=== PATIENT | female | born 1990 | race Two or more races ===

== ENCOUNTER 2022-03-11 08:35 | Inpatient (IN) ==
[2022-03-11] MEDS ORDERED: OXYTOCIN 30 UNITS/500 ML BAG IV PRN ×3 (08:55→22:44)
[2022-03-11 09:24] LABS: Hematocrit (blood only) 41.4 % (37-47); Hemoglobin 14.3 g/dL (12.0-16.0); Mean Corpuscular Hemoglobin 31.4 pg (25-34); Mean Corpuscular Hgb Conc 34.5 g/dL (32-36); Mean Platelet Volume 10.3 fL (7.4-10.4); Platelet Count 265 K/uL (130-400); RDW Coefficient of Variation 13.1 % (11.5-14.5); RDW Standard Deviation 43.1 fL (36.4-46.3); Red Blood Count 4.55 M/uL (4.2-5.4); White Blood Count 13.44 K/uL (4.8-10.8)
[2022-03-11] MEDS: LACTATED RINGER'S 1,000 ML IV PRN ×2 (09:37→19:18)
--- NOTE | 2022-03-11 10:23 | History & Physical Report ---
Date of Service March 11, 2022 Assessment & Plan (1) Encounter for supervision of normal intrauterine in primigravida, antepartum: Plan: pro, admit, note pos pcr at [facility] february 27, >10 days, therefore neg and will not do covid precautions. Admission and Anticipated Discharge Date Admission Date: March 11, 2022 History of Present Illness Primary Care Provider: NO PCP Allergies Allergy/AdvReac Type Severity Reaction Status Date / Time No Known Allergies Allergy Verified 03/06/22 16:46 Home Medications Medication Instructions Recorded Confirmed Type prenat.vits,jay,cdx-mmal-svekc 1 tab PO DAILY 08/03/21 03/11/22 History Patient History Medical History Migraines No significant past medical history Surgical History No pertinent past surgical history Family History Father Hypertension Diabetes Myocardial infarction Grandfather (Paternal) Pancreatic cancer Denies family history of Ovarian cancer Prostate cancer Breast cancer Colorectal cancer Social History Smoking Status: Never smoker Second Hand Exposure: No; Hx Alcohol Use: No Hx Substance Use: No Preferred Language: Trinidadian Communication Ability: Effective Visual Impairment: No Limitations Hearing Ability: Normal 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 Physical Required: No Beliefs That Will Affect Care: None marital status: marital status details: Conrad Paul (33) [phone] Current Living Situation: Spouse Current Living Situation Comment: lives with , no pets current occupational status: employed 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
--- NOTE | 2022-03-11 11:31 | Labor Progress Brief Note ---
Date of Service March 11, 2022 Contractions are present however they are fairly mild and spaced I recommended Pitocin for spontaneous rupture of membranes. Estimated weight 7 pounds Assessment & Plan Admission and Anticipated Discharge Date Admission Date: March 11, 2022 Results & Data ([facility]) Vital Signs (Past 12 Hours) Vital Signs Temp Pulse Resp BP 03/11/22 09:40 98.2 F 18 03/11/22 08:45 129 H 132/76 Coding Level of Care Code None
[2022-03-11] MEDS ORDERED: ePHEDrine sulfate 50 MG/ML AMP ONE (15:33)
[2022-03-11] MEDS ORDERED: fentaNYL 2MCG/ML ROPIVACAINE 1.25MG/ML 100 ML BAG EPI ONE (15:34)
[2022-03-11] MEDS ORDERED: BUPIVACAINE 0.25% 30 ML VIAL ONE (15:34)
[2022-03-11] MEDS ORDERED: SODIUM CHLORIDE 0.9% INJ 10 ML VIAL ONE (15:34)
[2022-03-11] MEDS ORDERED: fentaNYL citrate 100 MCG/2 ML VIAL ONE (15:34)
--- NOTE | 2022-03-11 15:43 | Labor Progress Brief Note ---
Date of Service March 11, 2022 Patient has declined intervention up to this point with suggestion of Pitocin earlier from myself Her contractions have increased and she has now dilated to 5 to 6 cm per nursing. The patient now wishes epidural this will be ordered. Will reassess cervix after patient is comfortable with epidural Assessment & Plan Admission and Anticipated Discharge Date Admission Date: March 11, 2022 Results & Data ([facility]) Vital Signs (Past 12 Hours) Vital Signs Temp Pulse Resp BP 03/11/22 15:10 97.9 F 03/11/22 15:04 20 03/11/22 13:16 82 126/74 03/11/22 13:15 98.2 F 18 03/11/22 09:40 98.2 F 18 03/11/22 08:45 129 H 132/76 Coding Level of Care Code None
[2022-03-11] MEDS ORDERED: NALOXONE HCL 1 MG in SODIUM CHLORIDE 0.9% 1000ML 1,000 ML IV PRN (15:45)
[2022-03-11] MEDS ORDERED: diphenhydrAMINE 50 MG/ML VIAL IV PRN (15:45)
[2022-03-11] MEDS ORDERED: ePHEDrine sulfate 50 MG/ML AMP IV PRN (15:45)
[2022-03-11] MEDS ORDERED: NALBUPHINE HCL INJ 10 MG/ML AMP IV PRN (15:45)
[2022-03-11] MEDS ORDERED: fentaNYL 2MCG/ML ROPIVACAINE 1.25MG/ML 100 ML BAG EPI PRN (15:45)
[2022-03-11] MEDS ORDERED: NALOXONE HCL 0.4 MG/1 ML VIAL/CARP IV PRN (15:45)
[2022-03-11] MEDS ORDERED: ONDANSETRON INJ 2 MG/ML 2 ML VIAL IV PRN (15:45)
--- NOTE | 2022-03-11 15:45 | Anesthesiology Consultation ---
Date of Service March 11, 2022 Assessment & Plan ASA ASA2 Proposed Anesthesia Anesthesia Type: Labor Epidural Risk / Benefits Reviewed With: PT / POA / Parent / Guardian, Accepts Plan and Informed Consent Obtained History Height/Weight Height: 5 ft Weight: 66.224 kg Allergies Allergy/AdvReac Type Severity Reaction Status Date / Time No Known Allergies Allergy Verified 03/06/22 16:46 Medications Home Medications Medication Instructions Recorded Confirmed Last Taken prenat.vits,jay,yoe-sogk-xklwx 1 tab PO DAILY 08/03/21 03/11/22 1 Day Ago ~03/10/22 1 Active Medications Generic Name Dose Route Start Last Admin Trade Name Freq PRN Reason Stop Dose Admin Lactated Ringer's 1,000 mls @ 125 mls/hr 03/11/22 08:55 03/11/22 11:30 Lr IV 03/13/22 08:54 0 mls/hr .Q8H PRN Infusion L&D Protocol Protocol Past Medical History Medical History Migraines No significant past medical history Exercise / Class Metabolic Activity II 4-5 Yardwork/Stairs/Walk up hill Past Family History Family History Father Hypertension Diabetes Myocardial infarction Grandfather (Paternal) Pancreatic cancer Denies family history of Ovarian cancer Prostate cancer Breast cancer Colorectal cancer Past Surgical History Surgical History No pertinent past surgical history Past Anesthesia History No Hx of Anesthesia Complications and No Family Hx of Anesthesia Complications History of PONV No Hx of PONV and No Hx of Motion Sickness Social History Smoking Status: Never smoker Hx Alcohol Use: No Hx Substance Use: No Review of Systems denies fever/cough/ colds/ chest pain/ SOB/ SHELBY denies SHELBY Physical Exam Vital Signs Last Vital Signs Temp 36.6 C 03/11/22 15:10 Pulse 98 H 03/11/22 16:26 Resp 20 03/11/22 15:04 BP 109/57 L 03/11/22 16:26 Pulse Ox 100 03/11/22 16:25 ENMT Mouth: no TMJ abnormality and no dentition abnormality Thyromental Distance: > or= 3.5 Finger Breadths Mallampati Class: II Neck neck extension not limited Respiratory normal respiratory effort; no respiratory distress Auscultation: lungs clear to auscultation bilaterally Cardiovascular Rate/Rhythm: regular rate and regular rhythm Neurologic moves all extremities Psychiatric Orientation: alert and oriented x 3 Testing Laboratory Results 03/11/22 09:03
--- NOTE | 2022-03-11 16:25 | Labor Progress Brief Note ---
Date of Service March 11, 2022 Now has epidural cervix 5 cm 100% effacement I have strongly recommended Pitocin at this stage as she needs a slightly better contraction pattern has not changed since before the epidural Assessment & Plan Admission and Anticipated Discharge Date Admission Date: March 11, 2022 Results & Data ([facility]) Vital Signs (Past 12 Hours) Vital Signs Temp Pulse Resp BP Pulse Ox 03/11/22 16:23 94 H 116/60 03/11/22 16:20 108 H 121/56 L 100 03/11/22 16:19 115 H 118/58 L 03/11/22 16:17 103 H 122/59 L 03/11/22 16:15 92 H 127/61 100 03/11/22 16:11 105 H 120/59 L 03/11/22 16:10 101 H 88 L 03/11/22 16:05 88 130/86 100 03/11/22 16:02 113 H 125/83 03/11/22 16:00 91 H 100 03/11/22 15:10 97.9 F 03/11/22 15:04 20 03/11/22 13:16 82 126/74 03/11/22 13:15 98.2 F 18 03/11/22 09:40 98.2 F 18 03/11/22 08:45 129 H 132/76 Coding Level of Care Code None
--- NOTE | 2022-03-11 17:31 | Labor Progress Brief Note ---
Date of Service March 11, 2022 Management update Nursing is informed me again that despite the patient agreeing to Pitocin when I am in the room, as soon as I leave the room they have decided not to have Pitocin. I discussed in depth the nature of Pitocin what it is how it used in the low-dose fashion and how it can facilitate a healthy delivery specifically because her contractions have spaced out at this stage after the epidural. We have had several conversations about Pitocin and she states they have talked to a physician friend of theirs by phone as well. I clearly and emphatically stated that the patient did not have to do anything that we recommended and specifically if she did not want Pitocin that that was her choice but that this was outside of the recommendation of medical therapy at this time. I specifically stated that medically I recommended Pitocin for the patient to augment her labor because of rupture of membranes and contractions that it spaced out additionally her cervix had not changed between several checks more than 2 hours apart Once again I have reassured the patient we are happy to take care of her and we will respect her wishes of course. I discussed however that she is outside of the recommendation of her treatment by me at this stage and that there can be consequences to that. Specifically prolonged labor infection due to prolonged rupture of membranes these were all discussed with her. Support and encouragement provided to the patient Recommendation for Pitocin again given Assessment & Plan Admission and Anticipated Discharge Date Admission Date: March 11, 2022 Results & Data ([facility]) Vital Signs (Past 12 Hours) Vital Signs Temp Pulse Resp BP Pulse Ox 03/11/22 17:26 93 H 94/55 L 03/11/22 17:25 94 H 97 03/11/22 17:23 85 90/50 L 03/11/22 17:20 85 84/54 L 99 03/11/22 17:17 85 87/51 L 03/11/22 17:15 98 H 100 03/11/22 17:14 96 H 91/53 L 03/11/22 17:11 86 93/51 L 03/11/22 17:10 92 H 100 03/11/22 17:08 90 94/52 L 03/11/22 17:05 93 H 95/52 L 100 03/11/22 17:03 104 H 88/51 L 03/11/22 17:02 92 H 91/52 L 03/11/22 17:00 92 H 100 03/11/22 16:59 98.2 F 87 16 89/51 L 03/11/22 16:56 97 H 90/51 L 03/11/22 16:55 107 H 98 03/11/22 16:53 92 H 90/54 L 03/11/22 16:50 105 H 86/51 L 99 03/11/22 16:47 111 H 92/49 L 03/11/22 16:45 96 H 82/50 L 99 03/11/22 16:44 108 H 78/40 L 03/11/22 16:42 100 H 93/50 L 03/11/22 16:41 105 H 92 03/11/22 16:40 99 H 100 03/11/22 16:35 104 H 102/59 L 100 03/11/22 16:32 95 H 109/55 L 03/11/22 16:30 101 H 100 03/11/22 16:29 106 H 108/55 L 03/11/22 16:26 98 H 109/57 L 03/11/22 16:25 105 H 100 03/11/22 16:23 94 H 116/60 03/11/22 16:20 108 H 121/56 L 100 03/11/22 16:19 115 H 118/58 L 03/11/22 16:17 103 H 122/59 L 03/11/22 16:15 92 H 127/61 100 03/11/22 16:11 105 H 120/59 L 03/11/22 16:10 101 H 88 L 03/11/22 16:05 88 130/86 100 03/11/22 16:02 113 H 125/83 03/11/22 16:00 91 H 100 03/11/22 15:10 97.9 F 03/11/22 15:04 20 03/11/22 13:16 82 126/74 03/11/22 13:15 98.2 F 18 03/11/22 09:40 98.2 F 18 03/11/22 08:45 129 H 132/76 Coding Level of Care Code None
--- NOTE | 2022-03-11 22:07 | Delivery Summary ---
Vaginal Delivery Summary Date of Service March 11, 2022 Vaginal Delivery Summary Spontaneous vaginal delivery the patient delivered baby in occiput anterior position after head was born fluid was clear mouth and then nares suctioned there was no nuchal cord gentle traction easy delivery with no excessive force live vigorous female infant cord gases obtained cord blood obtained placenta removed with traction second-degree tear repaired with 3-0 Vicryl IV Pitocin started uterine tone improved sponge and instrument counts correct estimated blood loss 200 mL
[2022-03-11 22:24] LABS: Base Excess Cord Venous Blood -3.5 mEq/L (-7.7-1.9); Cord Venous Blood HCO3 22 mmol/L (18.4-26.8); Cord Venous Blood PCO2 40 mmHg (30.4-57.2); Cord Venous Blood PO2 28 mmHg (14.1-43.3); Cord Venous Blood pH 7.35 (7.20-7.44); O2 Saturation Cord Venous Bld 64.1 % (<68)
[2022-03-11 22:26] LABS: Base Excess Cord Arterial Bld -4.1 mEq/L (-9-1.8); CO2 Cord Arterial Blood 48 mmHg (39.1-73.5); HCO3 Cord Arterial Blood 23 mmol/L (19.7-28.5); Oxygen Sat Cord Arterial Blood < 60.0 % (<60); PO2 Cord Arterial Blood 25 mmHg (4.1-31.7); pH Cord Arterial Blood 7.29 (7.1-7.38)
[2022-03-11] MEDS ORDERED: DIPHTHERIA/TETANUS/PERTUSSIS 0.5 ML SYR/VIAL IM ONE (22:44)
[2022-03-11] MEDS ORDERED: BENZOCAINE 20% AER SPR 82.5 GM CAN EXT PRN (22:44)
[2022-03-11] MEDS ORDERED: oxyCODONE/ACETAMINOPHEN 5mg/325mg TAB PO PRN (22:44)
[2022-03-11] MEDS ORDERED: ACETAMINOPHEN 325 MG TAB PO PRN (22:44)
[2022-03-11] MEDS ORDERED: HYDROCORTISONE ACETATE 25 MG SUPP PR PRN (22:44)
[2022-03-11] MEDS: IBUPROFEN 600 MG TAB PO PRN (23:40)
--- NOTE | 2022-03-12 06:37 | Hospitalist Progress Note ---
Date of Service March 12, 2022 Assessment & Plan (1) Vaginal delivery: Plan: 32 yo now PPD1 from at 37w4d -Continue routine care today -Vitals reviewed- HDS, afebrile -Blood type O+, GBS-, Rubella immune -Encourage ambulation, regular diet -Pain control with ibuprofen, acetaminophen PRN -Encourage -F/u in 6 weeks with OB after discharge Admission and Anticipated Discharge Date Admission Date: March 11, 2022 Subjective Pt doing well, no acute complaints. Review of Systems Review of Systems: Denies fevers/chills. Denies dyspnea, cough. Denies chest pain. Denies breast pain or discharge. Denies dysuria. Denies headache. Denies back pain. Physical Exam Physical Exam: General: Alert, oriented, no acute distress Cardiac: Regular rate and rhythm, normal S1, S2. No murmurs appreciated. Respiratory: Clear to auscultation b/l with good air flow entry, symmetric chest rise and fall. No wheezes or crackles. No increased work of breathing or accessory muscle use Abdomen: Soft, nontender, nondistended. Fundus firm and palpable at 2 cm below umbilicus. No guarding or rebound. Skin: No rashes or lesions Extremities: Warm, dry, well-perfused with capillary refill <2s b/l. No lower extremity edema, erythema, swelling or calf tenderness Results & Data Results & Data ([facility]) Vital Signs (Past 12 Hours) Vital Signs Temp Pulse Pulse Resp BP BP Pulse Ox 03/12/22 05:15 36.6 C 87 18 105/68 97 03/12/22 01:00 36.8 C 93 H 18 110/71 98 03/12/22 00:25 18 03/12/22 00:05 96 H 109/67 03/12/22 00:00 111 H 99 03/11/22 23:55 107 H 99 03/11/22 23:50 109 H 98 03/11/22 23:45 108 H 98 03/11/22 23:40 108 H 96 03/11/22 23:35 105 H 98 03/11/22 23:34 96 H 96/56 L 03/11/22 23:33 18 03/11/22 23:30 101 H 97 03/11/22 23:25 100 H 97 03/11/22 23:20 111 H 97 03/11/22 23:19 110 H 98/64 L 03/11/22 23:15 105 H 97 03/11/22 23:10 108 H 96 03/11/22 23:05 109 H 97 03/11/22 23:04 111 H 100/56 L 03/11/22 23:00 108 H 96 03/11/22 22:55 112 H 96 03/11/22 22:50 111 H 97 03/11/22 22:49 108 H 106/55 L 03/11/22 22:48 18 03/11/22 22:45 109 H 96 03/11/22 22:40 111 H 96 03/11/22 22:35 114 H 97 03/11/22 22:34 110 H 111/58 L 03/11/22 22:33 18 03/11/22 22:30 113 H 96 03/11/22 22:25 114 H 97 03/11/22 22:20 116 H 96 03/11/22 22:19 114 H 115/55 L 03/11/22 22:18 18 03/11/22 22:15 115 H 97 03/11/22 22:10 124 H 97 03/11/22 22:09 118 H 116/58 L 03/11/22 22:05 119 H 97 03/11/22 22:03 125 H 18 104/64 03/11/22 22:00 124 H 98 03/11/22 21:55 121 H 108/66 98 03/11/22 21:50 134 H 98 03/11/22 21:49 139 H 132/75 03/11/22 21:45 151 H 100 03/11/22 21:40 158 H 100 03/11/22 21:35 127 H 99 03/11/22 21:34 123 H 137/67 03/11/22 21:30 131 H 96 03/11/22 21:25 137 H 99 03/11/22 21:20 143 H 98 03/11/22 21:19 111 H 120/58 L 03/11/22 21:15 118 H 99 03/11/22 21:10 37.5 C 130 H 18 98 03/11/22 21:05 122 H 123/62 99 03/11/22 21:00 116 H 100 03/11/22 20:55 130 H 100 03/11/22 20:54 122 H 87 L 03/11/22 20:51 133 H 141/62 H 03/11/22 20:50 147 H 95 03/11/22 20:45 120 H 100 03/11/22 20:40 111 H 99 03/11/22 20:35 130 H 100 03/11/22 20:34 126 H 131/59 L 03/11/22 20:30 119 H 100 03/11/22 20:29 110 H 89 L 03/11/22 20:26 100 H 136/61 03/11/22 20:25 93 H 100 03/11/22 20:20 133 H 100 03/11/22 20:15 122 H 99 03/11/22 20:10 113 H 139/57 L 100 03/11/22 20:05 106 H 100 03/11/22 20:00 105 H 100 03/11/22 19:55 93 H 100 03/11/22 19:50 92 H 100 03/11/22 19:45 88 100 03/11/22 19:40 78 97 03/11/22 19:35 87 100 03/11/22 19:34 77 97/55 L 03/11/22 19:30 94 H 96 03/11/22 19:25 81 99 03/11/22 19:21 79 95/51 L 03/11/22 19:20 87 99 03/11/22 19:15 79 99 03/11/22 19:10 80 99 03/11/22 19:05 86 96/55 L 98 03/11/22 19:00 89 99 03/11/22 18:55 87 100 03/11/22 18:50 83 100 03/11/22 18:49 97 H 90/55 L 03/11/22 18:45 99 H 100 03/11/22 18:40 90 100 03/11/22 18:35 97 H 100 03/11/22 18:34 77 97/53 L Resident Activity Tracking Resident Involvement: Resident Care Provided Care Provided: OB Delivery
--- NOTE | 2022-03-12 06:40 | Obstetrical Progress Note ---
Date of Service <Brigitte Gilliland MD - Last Filed: 03/12/22 07:03> March 12, 2022 Assessment & Plan <Brigitte Gilliland MD - Last Filed: 03/12/22 07:03> (1) Vaginal delivery: 32 yo now PPD1 from at 37w4d -Continue routine care today -Vitals reviewed- HDS, afebrile -Blood type O+, GBS-, Rubella immune -Encourage ambulation, regular diet -Pain control with ibuprofen, acetaminophen PRN -Encourage -F/u in 6 weeks with OB after discharge <Holly Daniel MD, FACOG - Last Filed: 03/12/22 07:05> (1) Vaginal delivery: Subjective <Brigitte Gilliland MD - Last Filed: 03/12/22 07:03> Ambulation: ambulating normally Voiding: no voiding problems Passing Gas:: Yes Diet Tolerance:: regular diet Lochia:: Small Feeding Type:: breast feeding Current Pain Level(1-10): 2 Pt doing well, has some minor L hip soreness. Pain relieved with medication. No other complaints. Review of Systems Denies fevers/chills. Denies dyspnea, cough. Denies chest pain. Denies breast pain or discharge. Denies dysuria. Denies headache. Denies back pain. Physical Exam <Brigitte Gilliland MD - Last Filed: 03/12/22 07:03> General: Alert, oriented, no acute distress Cardiac: Regular rate and rhythm, normal S1, S2. No murmurs appreciated. Respiratory: Clear to auscultation b/l with good air flow entry, symmetric chest rise and fall. No wheezes or crackles. No increased work of breathing or accessory muscle use Abdomen: Soft, nontender, nondistended. Fundus firm and palpable at 2 cm below umbilicus. No guarding or rebound. Skin: No rashes or lesions Extremities: Warm, dry, well-perfused with capillary refill <2s b/l. No lower extremity edema, erythema, swelling or calf tenderness Results & Data ([facility]) <Brigitte Gilliland MD - Last Filed: 03/12/22 07:03> Vital Signs (Past 12 Hours) Vital Signs Temp Pulse Pulse Resp BP BP Pulse Ox 03/12/22 05:15 36.6 C 87 18 105/68 97 03/12/22 01:00 36.8 C 93 H 18 110/71 98 03/12/22 00:25 18 03/12/22 00:05 96 H 109/67 03/12/22 00:00 111 H 99 03/11/22 23:55 107 H 99 03/11/22 23:50 109 H 98 03/11/22 23:45 108 H 98 03/11/22 23:40 108 H 96 03/11/22 23:35 105 H 98 03/11/22 23:34 96 H 96/56 L 03/11/22 23:33 18 03/11/22 23:30 101 H 97 03/11/22 23:25 100 H 97 03/11/22 23:20 111 H 97 03/11/22 23:19 110 H 98/64 L 03/11/22 23:15 105 H 97 03/11/22 23:10 108 H 96 03/11/22 23:05 109 H 97 03/11/22 23:04 111 H 100/56 L 03/11/22 23:00 108 H 96 03/11/22 22:55 112 H 96 03/11/22 22:50 111 H 97 03/11/22 22:49 108 H 106/55 L 03/11/22 22:48 18 03/11/22 22:45 109 H 96 03/11/22 22:40 111 H 96 03/11/22 22:35 114 H 97 03/11/22 22:34 110 H 111/58 L 03/11/22 22:33 18 03/11/22 22:30 113 H 96 03/11/22 22:25 114 H 97 03/11/22 22:20 116 H 96 03/11/22 22:19 114 H 115/55 L 03/11/22 22:18 18 03/11/22 22:15 115 H 97 03/11/22 22:10 124 H 97 03/11/22 22:09 118 H 116/58 L 03/11/22 22:05 119 H 97 03/11/22 22:03 125 H 18 104/64 03/11/22 22:00 124 H 98 03/11/22 21:55 121 H 108/66 98 03/11/22 21:50 134 H 98 03/11/22 21:49 139 H 132/75 03/11/22 21:45 151 H 100 03/11/22 21:40 158 H 100 03/11/22 21:35 127 H 99 03/11/22 21:34 123 H 137/67 03/11/22 21:30 131 H 96 03/11/22 21:25 137 H 99 03/11/22 21:20 143 H 98 03/11/22 21:19 111 H 120/58 L 03/11/22 21:15 118 H 99 03/11/22 21:10 37.5 C 130 H 18 98 03/11/22 21:05 122 H 123/62 99 03/11/22 21:00 116 H 100 03/11/22 20:55 130 H 100 03/11/22 20:54 122 H 87 L 03/11/22 20:51 133 H 141/62 H 03/11/22 20:50 147 H 95 03/11/22 20:45 120 H 100 03/11/22 20:40 111 H 99 03/11/22 20:35 130 H 100 03/11/22 20:34 126 H 131/59 L 03/11/22 20:30 119 H 100 03/11/22 20:29 110 H 89 L 03/11/22 20:26 100 H 136/61 03/11/22 20:25 93 H 100 03/11/22 20:20 133 H 100 03/11/22 20:15 122 H 99 03/11/22 20:10 113 H 139/57 L 100 03/11/22 20:05 106 H 100 03/11/22 20:00 105 H 100 03/11/22 19:55 93 H 100 03/11/22 19:50 92 H 100 03/11/22 19:45 88 100 03/11/22 19:40 78 97 03/11/22 19:35 87 100 03/11/22 19:34 77 97/55 L 03/11/22 19:30 94 H 96 03/11/22 19:25 81 99 05 19:21 79 95/51 L 03/11/22 19:20 87 99 03/11/22 19:15 79 99 03/11/22 19:10 80 99 03/11/22 19:05 86 96/55 L 98 03/11/22 19:00 89 99 03/11/22 18:55 87 100 03/11/22 18:50 83 100 03/11/22 18:49 97 H 90/55 L 03/11/22 18:45 99 H 100 03/11/22 18:40 90 100 <Holly Daniel MD, FACOG - Last Filed: 03/12/22 07:05> Co-Signing Physician Notes Resident Physician Supervision Note: I interviewed and examined the patient. Discussed with [Name of resident] and agree with findings and plan as documented in the note. Any exceptions or clarifications are listed here: [None] Documented By: Holly Daniel MD, FACOG Resident Activity Tracking <Brigitte Gilliland MD - Last Filed: 03/12/22 07:03> Resident Involvement: Resident Care Provided Care Provided: OB Delivery
[2022-03-12] MEDS: PRENATAL VITAMIN 1 TAB PO SCH (07:58)
[2022-03-12] MEDS: DOCUSATE SODIUM 100 MG CAP PO SCH ×2 (07:58→20:02)
--- NOTE | 2022-03-12 10:07 | Anesthesia Procedure Note ---
Date of Service March 12, 2022 Anesthesia Post Epidural Note Vital Signs Vital Signs: Temp Pulse Resp BP Pulse Ox 97.7 F 77 18 108/67 96 03/12/22 07:13 03/12/22 07:13 03/12/22 07:13 03/12/22 07:13 03/12/22 07:13 Pain Intensity Episiotomy/Laceration: Pain Intensity: 5 Notes Mental Status: alert / awake / arousable and participated in evaluation Nausea / Vomiting: adequately controlled Pain: adequately controlled Airway Patency, RR, SpO2: stable & adequate BP & HR: stable & adequate Hydration State: stable & adequate Neuraxial Anesthesia: was administered and sensory block is resolving Anesthetic Complications: no major complications apparent and Pt Satisfied with anesthetic care Epidural: Removed without complications and With tip intact
[2022-03-12] MEDS ORDERED: bisacodyL 5 MG TABEC PO SCH (20:00)
[2022-03-12] MEDS: IBUPROFEN 600 MG TAB PO PRN (20:02)
[2022-03-13] MEDS ORDERED: bisacodyL 10 MG SUPP PR PRN
--- NOTE | 2022-03-13 06:02 | Obstetrical Progress Note ---
Date of Service <Brigitte Gilliland MD - Last Filed: 03/13/22 07:42> March 13, 2022 Assessment & Plan <Brigitte Gilliland MD - Last Filed: 03/13/22 07:42> (1) Vaginal delivery: 32 yo now PPD2 from at 37w4d, doing well. -Vitals reviewed- HDS, afebrile -Blood type O+, GBS-, Rubella immune -Discharge home today, instructions reviewed with patient -F/u in 6 weeks with OB <Malu Gray MD - Last Filed: 03/13/22 07:40> (1) Vaginal delivery: Subjective <Brigitte Gilliland MD - Last Filed: 03/13/22 07:42> Ambulation: ambulating normally Voiding: no voiding problems Passing Gas:: Yes Diet Tolerance:: regular diet Lochia:: Small Feeding Type:: breast feeding Current Pain Level(1-10): 0 Pt doing well. going well, bleeding has slowed. BM last night. No acute complaints. Review of Systems Denies fevers/chills. Denies dyspnea, cough. Denies chest pain. Denies breast pain or discharge. Denies dysuria. Denies headache. Denies back pain. Physical Exam <Brigitte Gilliland MD - Last Filed: 03/13/22 07:42> General: Alert, oriented, no acute distress Cardiac: Regular rate and rhythm, normal S1, S2. No murmurs appreciated. Respiratory: Clear to auscultation b/l with good air flow entry, symmetric chest rise and fall. No wheezes or crackles. No increased work of breathing or accessory muscle use Abdomen: Soft, nontender, nondistended. Fundus firm and palpable at 2 cm below umbilicus. No guarding or rebound. Skin: No rashes or lesions Extremities: Warm, dry, well-perfused with capillary refill <2s b/l. No lower extremity edema, erythema, swelling or calf tenderness Results & Data ([facility]) <Brigitte Gilliland MD - Last Filed: 03/13/22 07:42> Vital Signs (Past 12 Hours) Vital Signs Temp Pulse Pulse Resp BP Pulse Ox 03/12/22 23:30 37.1 C 78 18 99/63 L 03/12/22 19:55 36.8 C 90 90 18 117/74 98 <Malu Gray MD - Last Filed: 03/13/22 07:40> Co-Signing Physician Notes Resident Physician Supervision Note: I interviewed and examined the patient separately from Dr. Gilliland, and agree with findings and plan as documented in the note. successfully, meeting all recovery milestones, no concerning findings. Plan is for discharge home today, pt given instructions by this MD and had her questions answered to stated satisfaction. Documented By: Malu Gray MD, FACOG Resident Activity Tracking <Brigitte Gilliland MD - Last Filed: 03/13/22 07:42> Resident Involvement: Resident Care Provided Care Provided: OB Delivery
[2022-03-13 07:06] LABS: Hematocrit (blood only) 37.5 % (37-47)
[2022-03-13] MEDS: PRENATAL VITAMIN 1 TAB PO SCH (09:14)
[2022-03-13] MEDS: DOCUSATE SODIUM 100 MG CAP PO SCH (09:14)
== END 2022-03-13 14:42 | disposition home or self-care (01) | DRG 807 ==
LOC: OPB 08:35 → 4S1 08:38 → 4E2 03-12 01:02